=== PATIENT | female | born 1960 | race African-American/Black ===

== ENCOUNTER 2018-01-02 07:27 | Emergency (ER) | payer OTHER ==
[~2018-01-02] VITALS: Ht 167.6 cm; Wt 91.0 kg
[2018-01-02 09:32] LABS: CHLORIDE 107 mEq/L (98-107)
[2018-01-02 09:34] LABS: PROTHROMBIN TIME 10.3 sec (9.4-11.6)
[2018-01-02 09:35] LABS: BASOPHILS % 0.9 % (0.0-2.0); EOSINOPHILS % 3.8 % (0.0-5.0); HEMATOCRIT. 38.2 % (36.0-48.0); HEMOGLOBIN. 12.9 g/dL (12.0-16.0); MEAN CORPUSCULAR HEMOGLOBIN 27.8 pg (28.0-32.0); MEAN CORPUSCULAR VOLUME 82.3 fL (81.0-99.0); MEAN PLATELET VOLUME 8.3 fl (7.4-10.4); MONOCYTES % 7.7 % (2.0-8.0); NEUTROPHILS % 53.6 % (40.0-76.0); PLATELET 274 x1000/uL (130-400); RED BLOOD CELL COUNT 4.64 mill/uL (4.2-5.4)
[2018-01-02 13:00] VITALS: BP 138/73
== END 2018-01-02 13:00 | disposition home or self-care (01) ==
LOC: ER 07:27
DX: R07.9 Chest pain, unspecified (principal); Z83.3 Family history of diabetes mellitus; Z82.49 Family history of ischemic heart disease and other diseases of the circulatory system
CPT/HCPCS: 36415; 71045; 80053; 83880; 84484; 85025; 85610; 93005; 99285

== ENCOUNTER 2018-09-20 11:28 | Emergency (ER) | payer SELFPAY ==
[~2018-09-20] VITALS: Ht 167.6 cm; Wt 133.0 kg
[2018-09-20 11:46] VITALS: BP 160/81
== END 2018-09-20 15:49 | disposition left against medical advice (07) ==
LOC: ER 11:28
DX: M54.5 Low back pain (principal); Z53.21 Procedure and treatment not carried out due to patient leaving prior to being seen by health care provider